=== PATIENT | male | born 1990 | race Caucasian/White ===

== ENCOUNTER 2020-12-10 07:13 | Outpatient (CLI) | payer OTHER ==
[2020-12-10 15:51] LABS: ALT ALANINE AMINOTRANSFERASE 29 IU/L (10-60); AST ASPARTATE AMINOTRANSFERASE 20 IU/L (10-42); BUN - BLOOD UREA NITROGEN 11 mg/dL (6-20); CHOL/HDL RATIO 2.7 (<5.0); CHOLESTEROL 130 mg/dL; CK- CREATINE KINASE 68 IU/L (22-269); CREATININE 0.8 mg/dL (0.6-1.2); GFR - MDRD 115 (>89); GLUCOSE,FASTING 92 mg/dL (70-100); HDL CHOLESTEROL 49 mg/dL; LDL CHOLESTEROL,CALCULATED 65 mg/dL; LDL/HDL RATIO 1.3 (<3.6); TRIGLYCERIDES 80 mg/dL; URIC ACID 4.2 mg/dL (2.6-7.2); VLDL CHOLESTEROL 16 mg/dL
== END 2020-12-10 07:14 | disposition home or self-care (01) ==
LOC: LAB.S 07:13
DX: E78.5 Hyperlipidemia, unspecified (principal)
CPT/HCPCS: 36415; 80061; 82550; 82565; 82947; 83721; 84450; 84460; 84520; 84550

== ENCOUNTER 2023-01-13 08:00 | Outpatient (CLI) | payer OTHER ==
[2023-01-14 09:34] LABS: CHLAMYDIA TRACHOMATIS DNA NEGATIVE (NEGATIVE); NEISSERIA GONORRHOEAE DNA NEGATIVE (NEGATIVE); TRICHOMONAS VAGINALIS DNA NEGATIVE (NEGATIVE)
== END 2023-01-13 23:59 | disposition home or self-care (01) ==
LOC: LAB.S 08:00
PROVIDERS: ATTEND Physician Assistant
DX: N34.2 Other urethritis (principal)
CPT/HCPCS: 87491; 87591; 87661